=== PATIENT | female | born 1995 | race Caucasian/White ===

== ENCOUNTER 2020-09-25 14:06 | Outpatient (CLI) | payer BC, OTHER, SELFPAY | END 2020-09-25 14:07 | disposition home or self-care (01) | LOC: ANHCOVIDVC 14:06 | PROVIDERS: PCP Advanced Practice Midwife | DX: Z23 Encounter for immunization (principal) | CPT/HCPCS: 0001A; 91300 ==

== ENCOUNTER 2020-10-16 14:03 | Outpatient (CLI) | payer BC, OTHER, SELFPAY | END 2020-10-16 14:04 | disposition home or self-care (01) | LOC: ANHCOVIDVC 14:03 | PROVIDERS: PCP Advanced Practice Midwife | DX: Z23 Encounter for immunization (principal) | CPT/HCPCS: 0002A; 91300 ==

== ENCOUNTER 2020-11-22 22:49 | Emergency (ER) | payer BC, OTHER, SELFPAY ==
--- NOTE | ~2020-11-22 | CT_ITS ---
EXAMINATION: CT abdomen pelvis wo con DATE: 11/23/2020 00:09 INDICATION: Right flank pain and fever TECHNIQUE: Computed tomography (CT) of the abdomen and pelvis was performed without intravenous contr ast. Automated exposure control and iterative reconstruction technique were employed. The dose-length product was 361.52 mGy-cm. COMPARISON: 04/22/2018 FINDINGS: Lower lungs are clear. Heart size is normal. No pericardial or pleural effusion. Liver, gallbladder, pancreas, spleen and bilateral adrenal glands are normal. Kidneys and ureters are normal with no urol ithiasis, hydroureteronephrosis or perinephric/ureteral stranding. Bowels including the appendix are normal with no wall thickening or obstruction. IUD in expected position within the anteverted uterus. Bladder and bilateral adnexa are unremarkable. Small amount of likely physiologic free fluid in the pelvis. No free intraperitoneal gas. No pathologically enlarged abdominal or pelvic lymphadenopathy. Mild lumbar dextrocurvature. Bones are otherwise unremarkable. IMPRESSION: 1. No acute intra-abdominal/pelvic process. 2. IUD in expected position with small amount of likely physiologic free fluid in the pelvis. Reviewed, dictated and finalized at location A.
[2020-11-22 22:54] VITALS: BP 123/70; PULSE 131; RESP 20; TEMP 37.4; O2SAT 99
--- NOTE | 2020-11-22 23:32 | ED.GENADULT ---
HPI - General Adult General Chief complaint: Unspecified Stated complaint: flank pain Time Seen by Provider: 11/22/20 23:11 Source: patient Mode of arrival: ambulatory Limitations: no limitations History of Present Illness HPI narrative: This is a 24-year-old female that presents the emergency department for right flank pain since this morning. Reports it is intermittent and sharp in nature. Associated with fever, chills and nausea. Denies vomiting, dysuria, or hematuria. Related Data Home Medications Medication Instructions Recorded Confirmed Vitamin 1 tablet PO DAILY 05/18/19 05/18/19 valacyclovir 05/18/19 Allergies Allergy/AdvReac Type Severity Reaction Status Date / Time No Known Allergies Allergy Unknown Verified 05/05/19 12:44 Review of Systems Review of Systems: Narrative: CONSTITUTIONAL: Reports fever, chills GASTROINTESTINAL: Reports nausea. Denies abdominal pain, vomiting GENITOURINARY: Denies dysuria or hematuria. All systems reviewed & are unremarkable except as noted in HPI and below PMFSH Family History Family History Father Prostate carcinoma Social History Social History Smoking status: Never smoker Second hand tobacco smoke exposure: No Substance use: never Gender identity (if verbalized by the patient): Female Spiritual care concerns: No Exam Narrative: Exam Narrative: GENERAL: Well-appearing, well-nourished, and in no acute distress. HEAD: Normocephalic, atraumatic. EYES: EOMI. CHEST: Clear to auscultation. No respiratory distress. No wheezes rales or rhonchi HEART: Regular rate and rhythm. No murmur heard. Normal peripheral pulses. ABDOMEN: Soft, nontender, nondistended, normal active bowel sounds. Right-sided CVA tenderness EXTREMITIES: Normal range of motion. No edema. SKIN: Warm, dry, no rash. NEURO: No focal deficits. Alert and oriented x3. PSYCH: Normal mood and affect Course Vital Signs Vital signs: Vital Signs Temperature 99.4 F 11/22/20 22:54 Pulse Rate 131 H 11/22/20 22:54 Respiratory Rate 20 11/22/20 22:54 Blood Pressure 123/70 11/22/20 22:54 Pulse Oximetry 99 11/22/20 22:54 Temperature 99.4 F 11/22/20 22:54 Pulse Rate 131 H 11/22/20 22:54 Respiratory Rate 20 11/22/20 22:54 Blood Pressure 123/70 11/22/20 22:54 Pulse Oximetry 99 11/22/20 22:54 Medical Decision Making MDM Narrative Medical decision making narrative: Patient presents the emergency department for flank pain and subjective fevers. She is afebrile and nontoxic-appearing. Tachycardic upon arrival, this normalized with IV fluids. CBC is without leukocytosis. Metabolic panel without concerning findings. UA without evidence of infection. Bedside test is negative. CT scan of the abdomen and pelvis is without acute findings. Patient was updated on case findings. Reports improvement with IV fluids and Tylenol. She is to follow-up with primary care doctor. She is given warnings to return to the ER Vital Signs Vital Signs: Vital Signs Temperature 99.4 F 11/22/20 22:54 Pulse Rate 131 H 11/22/20 22:54 Respiratory Rate 20 11/22/20 22:54 Blood Pressure 123/70 11/22/20 22:54 Pulse Oximetry 99 11/22/20 22:54 Temperature 99.4 F 11/22/20 22:54 Pulse Rate 131 H 11/22/20 22:54 Respiratory Rate 20 11/22/20 22:54 Blood Pressure 123/70 11/22/20 22:54 Pulse Oximetry 99 11/22/20 22:54 Lab Data Lab results reviewed: Yes I reviewed the patient's lab results. Result diagrams: 11/22/20 23:28 11/22/20 23:28 Labs: Lab Results 11/22/20 11/22/20 11/22/20 Range/Units 23:23 23:28 23:28 WBC 8.0 (4.5-10.0) K/mm3 RBC 4.52 (4.2-5.4) M/mm3 Hgb 13.2 (12.0-15.0) g/dL Hct 39.8 (37.0-47.0) % MCV 88.1 (80-100) fl MCH 29.2 (26-34) pg MCHC 33.2 (32-36)
[2020-11-22 23:40] LABS: Basophils Percent Auto 0.5 % (0.2-1.2); Hematocrit 39.8 % (37.0-47.0); Hemoglobin 13.2 g/dL (12.0-15.0); Immature Granulocyte Absolute 0.03 K/mm3 (0.00-0.031); Immature Granulocyte Percent A 0.4 % (0-0.5); Lymphocytes Absolute Auto 0.79 K/mm3 (0.9-3.2); Lymphocytes Percent Auto 9.9 % (18.3-44.2); Mean Corpuscular HGB Conc 33.2 g/dl (32-36); Mean Corpuscular Hemoglobin 29.2 pg (26-34); Mean Corpuscular Volume 88.1 fl (80-100); Mean Platelet Volume 10.1 fl (7.4-10.4); Monocytes Absolute Auto 0.7 K/mm3 (0.1-0.6); Monocytes Percent Auto 8.9 % (2.6-8.5); Neutrophils Absolute Auto 6.4 K/mm3 (1.3-6.7); Neutrophils Percent Auto 80.3 % (45.5-73.1); Platelet Count Result 194 k/mm3 (150-375); Red Blood Count 4.52 M/mm3 (4.2-5.4); Red Cell Distribution Width 12.1 % (11.5-14.5)
[2020-11-22 23:47] LABS: Anion Gap 10 mmol/L (8-16); Blood Urea Nitrogen 14 mg/dL (7-17); Carbon Dioxide 27 mmol/L (22-30); Chloride 99 mmol/L (98-107); Estimated CRCL calculation 89 ml/min; Estimated Glomerular Filt Rate > 60; Glucose 99 mg/dL (65-105); Potassium 3.9 mmol/L (3.4-5.0); Sodium 136 mmol/L (137-145)
[2020-11-22 23:47] LABS: Add Urine Microscopic? YES; Appearance Urine Clear (Clear); Bacteria Urine Trace /hpf; Bilirubin Urine Negative (Negative); Blood Urine Negative (Negative); Color Urine Straw (Yellow); Glucose Urine UA Negative (Negative); Ketones Urine 1+ mg/dL (Negative); Leukocyte Esterase Ur Negative LEU/UL (Negative); Mucus Urine Rare /lpf; Nitrate Urine Negative (Negative); Protein Urine Negative (Negative); RBC Urine 0-2 /hpf (0-2); Specific Grav Ur 1.005 (1.001-1.035); Squamous Epithelial Cell Urine Occasional /hpf (Few); Urobilinogen Urine Negative mg/dL (<2.0); WBC Urine 0-3 /hpf
[2020-11-22] MEDS: SODIUM CHLORIDE 0.9% IV 1,000 ML 999 ML IV CONT (23:56)
[2020-11-23 01:14] LABS: Lactic Acid Reflex 0.5 mmol/L (0.7-2.1)
[2020-11-23 01:25] VITALS: BP 119/67; PULSE 79; RESP 18; O2SAT 98
== END 2020-11-23 01:32 | disposition home or self-care (01) ==
PROVIDERS: Physician Assistant; Emergency Provider Emergency Medicine; PCP Family Medicine Adolescent Medicine
DX: R10.9 Unspecified abdominal pain (principal); Z97.5 Presence of (intrauterine) contraceptive device
CPT/HCPCS: 36415; 74176; 80048; 81001; 81025; 83605; 85025; 96365; 99284; J0131; J7030

== ENCOUNTER 2022-01-21 00:08 | Day surgery (SDC) | payer BC, OTHER, SELFPAY ==
[2022-01-16 09:44] VITALS: BMI 23.8
--- NOTE | 2022-01-16 10:00 | PC.NURSE ---
Report to the Outpatient Waiting Room, entrance under the green pavilion located off [facility], at time 0630 on date 01/21/22. OR Time: 0830. - You and your visitor will be asked a series of questions to screen for COVID 19 for your protection. - Only one visitor is allowed at this time. - The patient visitor is requested to leave or wait in car when not with patient. - A mask is required within the hospital. Patients may have clear liquids (water, carbonated beverages, clear teas, apple juice) until 3 hours prior to surgery with a maximum of 20 ounces. - No food from midnight until time of surgery Take the following medications with a SIP of water the morning of surgery: N/A Medications to discontinue per physician: N/A Date to take last dose: N/A Please no make-up, nail slovak, hairspray, perfume, deodorant, or body powder the day of surgery. No jewelry (including any body piercings) or valuables the day of surgery, leave them at home. Please take a shower or bath the night before, or the morning of, surgery with an antibacterial soap. Wear comfortable, loose fitting clothing. - Jewelry must be removed prior to entering the operating room. Rings and piercings that are not removed may be cut off. - The hospital will not accept responsibility for valuables. - Please leave all valuables, including medications, at home the day of surgery. If you are going home after surgery, a licensed local company refrigerated truck driver must drive you home. - NO public transportation without another adult. - We recommend that an adult stay with you for 24 hours following discharge. - We also recommend that you do not drive, make important decision, drink alcoholic beverages, or take any drugs that were not prescribed by your health care provider for at least 24 hours after your discharge time. Follow any additional instructions given to you from your surgeon. If you or anyone in your household have experienced Covid symptoms in the past week, please notify your surgeon or the nurse liaison at the phone number below for possible testing. Telephone instructions given to PT - PANKAJ TERAN and asked if any additional questions and then verbalized understanding. Patient advised to call surgeon office or pre surgery nurse liaison [phone] if any additional questions.
--- NOTE | 2022-01-20 12:55 | P.PNAN_ITS ---
Anes - Initial Pre Proc Eval Procedure: Operation Date: 01/21/22 08:30 Proposed Procedures p Bilateral Laparoscopic Salpingectomy - Alexis Mera MD Date/Time: 01/20/22 12:55 Surgeon: Alexis Mera MD Pre Op Diagnosis: desires sterilization Patient Data Age: 26 Gender: F Height: 1.57 m Weight: 59 kg Allergies Allergy/AdvReac Type Severity Reaction Status Date / Time No Known Allergies Allergy Unknown Verified 01/16/22 09:43 Home Medications Medication Instructions Recorded Confirmed Type No Home Medications 01/16/22 01/16/22 History Patient hx anesthesia problems: none Family hx anesthesia problems: none Results Review: All pre-operative results and documents have been reviewed as part of the pre- operative evaluation. [facility] Past Medical History Medical History (Updated 01/20/22 @ 12:56 by Colby Herbert MD) Engages in vaping Family History Family History Father Prostate carcinoma Social History Social History Smoking status: Never smoker Tobacco type: e-cigarettes/vaping Second hand tobacco smoke exposure: No Additional smoking assessment comments: CURRENTLY VAPES Alcohol intake: current Alcohol use details: 2-3/MONTH Substance use: never Substance use type: does not use Living arrangements: with family Gender identity (if verbalized by the patient): Female Spiritual care concerns: No Anes - Eval Final PreProcedure Day of Procedure 01/20/22 12:55 Patient weight: normal Heart: regular rate and rhythm Lungs: clear to auscultation and normal air movement Airway: Mallampati scale class II Neurological: alert and oriented Last oral intake: >/= 8 hours ASA classification: II Emergent: no Anesthetic plan: proceed Anesthesia type and monitoring: general ETT Results Review: All pre-operative results and documents have been reviewed as part of the pre- operative evaluation. Informed Consent: The patient's anesthetic plan and its attendant risks and benefits were discussed with the patient/family/POA. Questions were solicited and answers provided to the satisfaction of the patient/family/POA.
--- NOTE | 2022-01-20 13:44 | P.PNAN_ITS ---
Anes - Initial Pre Proc Eval Procedure: Operation Date: 01/21/22 08:30 Proposed Procedures p Bilateral Laparoscopic Salpingectomy - Alexis Mera MD Date/Time: 01/20/22 13:44 Surgeon: Alexis Mera MD Pre Op Diagnosis: desires sterilization Patient Data Age: 26 Gender: F Height: 1.57 m Weight: 59 kg Allergies Allergy/AdvReac Type Severity Reaction Status Date / Time No Known Allergies Allergy Unknown Verified 01/16/22 09:43 Home Medications Medication Instructions Recorded Confirmed Type No Home Medications 01/16/22 01/16/22 History Results Review: All pre-operative results and documents have been reviewed as part of the pre- operative evaluation. [facility] Past Medical History Medical History (Updated 01/20/22 @ 12:56 by Colby Herbert MD) Engages in vaping Family History Family History Father Prostate carcinoma Social History Social History Smoking status: Never smoker Tobacco type: e-cigarettes/vaping Second hand tobacco smoke exposure: No Additional smoking assessment comments: CURRENTLY VAPES Alcohol intake: current Alcohol use details: 2-3/MONTH Substance use: never Substance use type: does not use Living arrangements: with family Gender identity (if verbalized by the patient): Female Spiritual care concerns: No Anes - Eval Final PreProcedure Day of Procedure 01/20/22 13:44 Results Review: All pre-operative results and documents have been reviewed as part of the pre- operative evaluation. Informed Consent: The patient's anesthetic plan and its attendant risks and benefits were discussed with the patient/family/POA. Questions were solicited and answers provided to the satisfaction of the patient/family/POA.
[2022-01-21] VITALS (8 sets, daily range): BP systolic 100–117; BP diastolic 67–75; PULSE 61–74; RESP 12–20; TEMP 36.4–36.5; O2SAT 99–100
[2022-01-21] MEDS: LACTATED RINGERS 1,000 ML 30 ML IV CONT (07:08)
[2022-01-21] MEDS: ACETAMINOPHEN 500 MG TABLET 1000 MG PO (07:08)
[2022-01-21] MEDS: KETOROLAC 15 MG/ML VIAL (*BKC) IV PUSH (07:08)
--- NOTE | 2022-01-21 08:39 | PM.IMHP ---
H&P: [facility] History of Present Illness Date/Time: 01/21/22 08:39 Chief Complaint: Female sterilization Narrative: This patient is a 26-year-old female who desires female sterilization. We have agreed perform laparoscopic bilateral salpingectomy. She understands there is risk. She understands that injuries may occur during the surgery. She understands injuries can result in hospitalization, more surgery, and severe illness. She understands risk of hemorrhage infection. She denies any nausea, vomiting, fever, chills. She denies any chest pain or shortness of breath. Review of Systems Review of Systems: All systems reviewed & are unremarkable except as noted in HPI and below Constitutional: Constitutional: Denies chills, Denies fatigue, Denies fever(s) and Denies weakness Eyes: Eyes: Denies blurry vision, Denies change in vision, Denies loss of peripheral vision, Denies loss of vision, Denies other visual disturbances and Denies eye pain ENT: Denies vertigo, Denies dizziness, Denies hearing loss, Denies mouth pain, Denies nasal obstruction, Denies neck mass and Denies neck pain Cardiovascular: Cardiovascular: Denies chest pain, Denies diaphoresis, Denies syncope, Denies leg edema and Denies dyspnea Respiratory: Respiratory: Denies chest congestion, Denies cough, Denies hemoptysis, Denies dyspnea and Denies wheezing Gastrointestinal: Gastrointestinal: Denies abdominal pain, Denies constipation, Denies diarrhea, Denies nausea and Denies vomiting Genitourinary: Genitourinary: Denies hematuria, Denies change in libido, Denies nocturia, Denies genital lesions, Denies flank pain and Denies urinary urgency Musculoskeletal: Musculoskeletal: Denies abnormal gait, Denies back pain, Denies myalgias, Denies arthralgias, Denies joint swelling, Denies muscle weakness and Denies neck pain Integumentary/Breasts: Skin/Breast: Denies swelling, Denies breast pain, Denies breast mass, Denies dry skin, Denies nipple discharge, Denies unusual bruising and Denies jaundice Neurologic: Denies Neuro-related abnormal movements, Denies Abnormal speech present, Denies abnormal gait, Denies behavioral changes, Denies confusion, Denies vertigo, Denies dizziness, Denies syncope, Denies loss of vision, Denies memory loss, Denies convulsions and Denies weakness Psychiatric: Psychiatric: Denies abnormal sleep pattern, Denies behavioral changes, Denies change in libido, Denies confusion, Denies depression, Denies anhedonia and Denies memory loss Endocrine: Endocrine: Reports no additional endocrine complaints, Denies change in libido and Denies fatigue Hematologic/Lymphatic: Hematologic/Lymphatic: Reports no additional hematologic/lymphatic complaints Allergic/Immunologic: Allergic/Immunologic: Reports no additional allergic/immunologic complaints and Denies wheezing PMFSH Past Medical History Medical History (Updated 01/21/22 @ 08:41 by Alexis Mera MD) Engages in vaping Family History Family History Father Prostate carcinoma Social History Social History Smoking status: Never smoker Tobacco type: e-cigarettes/vaping Second hand tobacco smoke exposure: No Additional smoking assessment comments: CURRENTLY VAPES Alcohol intake: current Alcohol use details: 2-3/MONTH Substance use: never Substance use type: does not use Living arrangements: with family Gender identity (if verbalized by the patient): Female Spiritual care concerns: No Meds Home Medications and Allergies Home Medications Medication Instructions Recorded Confirmed Type No Home Medications 01/16/22 01/16/22 History Allergies Allergy/AdvReac Type Severity Reaction Status Date / Time No Known Allergies Allergy Unknown Verified 01/21/22 07:43 Vital Signs Vital Signs - 24 hr 01/21/22 07:00 Temperature 97.5 F L Pulse Rate 74 Respiratory Ra
--- NOTE | 2022-01-21 08:42 | WPDHPUPDATE1 ---
History and Physical Update Update Date/Time: 01/21/22 08:42 History and Physical has been reviewed, including an updated exam of the patient. There are NO changes in the patient's condition. Risks, benefits, and alternatives have been discussed and questions answered. Patient agrees to proceed with procedure.
[2022-01-21] MEDS: fentaNYL CITRATE INJ (*CRX) 100 MCG/2 ML VIAL 25 MCG IV PUSH ×4 (09:39→09:56)
--- NOTE | 2022-01-21 10:22 | W.PM.PROC2 ---
Procedure Note - Detailed Date of Procedure 01/21/22 Pre-op Diagnosis desires sterilization Post-op Diagnosis Same Procedure Performed Laparoscopic bilateral salpingectomy Surgeon Alexis Mera MD Anesthesia General Indications Unwanted fertility Findings Normal pelvic anatomy Description of Procedure The patient was taken the operating room. She was prepped and draped in the dorsal lithotomy position after induction of general anesthesia. A 5 mm skin incision was made in the left upper quadrant of the abdominal skin. A 5 mm trocar was inserted the intra-abdominal cavity under direct visualization of the scope. Pneumoperitoneum was achieved. A 5 mm trocar was inserted in the left lower quadrant identical fashion. A 5 mm infraumbilical trocar was inserted in identical fashion as well. The bilateral fallopian tubes were removed. This was done by using a LigaSure cautery. The mesosalpinx adjacent to the tube was cauterized transected with LigaSure. This was initiated in the area the ovary and in a stepwise fashion moved medially to the area of the cornu of the uterus. Once there the fallopian tube was cauterized and transected. This was done in identical fashion on each side. The fallopian tubes were taken out through the left lower quadrant trocar site. The pneumoperitoneum was reduced. The trocars removed. The skin was closed with subcuticular 4 Monocryl and covered with Dermabond. She was taken to cover stable condition. Sponge lap and needle counts were correct x2. Estimated Blood Loss 5 Drains No Packing No Pathology Yes Complications No immediate complications Condition Stable Disposition PACU
[2022-01-21] MEDS: oxyCODONE HCL (*CRX) 5 MG TAB IR PO (10:36)
== END 2022-01-21 11:26 | disposition home or self-care (01) ==
PROVIDERS: PCP Family Medicine Adolescent Medicine; Visit Provider Obstetrics & Gynecology
PROC: (CPT 49320; principal; 2022-01-21 08:30)
DX: Z30.2 Encounter for sterilization (principal); N83.8 Other noninflammatory disorders of ovary, fallopian tube and broad ligament; F17.290 Nicotine dependence, other tobacco product, uncomplicated
CPT/HCPCS: 58661; 88302; A9270; J0330; J1100; J1885; J2250; J2405; J2704; J3010; J7030; J7120

== ENCOUNTER 2023-06-28 16:40 | Emergency (ER) | payer OTHER, SELFPAY ==
--- NOTE | 2023-06-28 16:48 | ED.SKABFB ---
HPI - Skin/Abscess/Foreign Bdy General Chief complaint: Skin/Abscess/Foreign Body Stated complaint: insect bit under right arm Time Seen by Provider: 06/28/23 17:00 Source: patient and RN notes reviewed Mode of arrival: ambulatory Limitations: no limitations History of Present Illness HPI narrative: 27-year-old female presents with concern for an insect bite under her right arm. Reports he noticed a by yesterday, she felt something bite her. She reports that is itchy and tender. She denies drainage from the area. She reports pain in tenderness is greater than the area of the actual redness. She denies swollen lips, swollen tongue, fever. MD complaint: insect bite/sting Related Data Allergies Allergy/AdvReac Type Severity Reaction Status Date / Time duloxetine [From Cymbalta] AdvReac Unknown Nausea Verified 06/28/23 16:49 sertraline AdvReac Unknown Nausea Verified 06/28/23 16:49 Review of Systems Review of Systems: CONSTITUTIONAL: Denies malaise, chills, sweats, or fever. EYES: Denies redness, or discharge. ENT: Denies rhinorrhea, congestion, swollen lips, swollen tongue CARDIOVASCULAR: Denies chest pain, palpitations, or edema. RESPIRATORY: Denies cough or dyspnea. GASTROINTESTINAL: Denies abdominal pain, nausea, vomiting SKIN: Reports tender in itchy insect bite on her right arm MUSCULOSKELETAL: Denies joint pain or myalgia. NEUROLOGIC: Denies headache. All systems reviewed & are unremarkable except as noted in HPI and below PMFSH Past Medical History Medical History Engages in vaping Surgical History Surgical History H/O tubal ligation (01/21/22) Family History Family History Father Prostate carcinoma Diabetes mellitus Grandparent Diabetes mellitus Heart disease Mother Hypertension Migraine Social History Social History Smoking status: Current every day smoker Tobacco type: e-cigarettes/vaping Second hand tobacco smoke exposure: No Additional smoking assessment comments: CURRENTLY VAPES Alcohol intake: current Alcohol use details: 2-3/MONTH Substance use: never Substance use type: does not use Living arrangements: with family Occupation/Education: occupation 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 There is no relevant family history pertinent to the presenting complaint Exam Narrative: GENERAL: Well-appearing, well-nourished, and in no acute distress. HEAD: Normocephalic, atraumatic. EYES: PERRLA, conjunctivae clear, and EOMI. ENT: Mucous membranes moist. Oropharynx without edema, erythema or lesions. NECK: Supple. No lymphadenopathy CHEST: Clear to auscultation. No respiratory distress. HEART: Regular rate and rhythm. SKIN: Warm, dry. 2 cm in diameter slightly raised erythematous area, nonfluctuant, tender noted in the right axilla with slight erythema surrounding and tenderness, no drainage noted NEURO: Alert and oriented x3. PSYCH: Normal mood and affect Course Course Emergency Course: Patient is aware of diagnosis, understands and agrees to treatment plan. Anticipatory guidance given. Patient agrees to follow-up as directed and is aware of reasons to seek care at the emergency department. Portions of this record may have been created with voice recognition software Level of Care: Express Care Visit Vital Signs Vital signs: Reviewed. MDM - Skin/Abscess/Foreign Bdy MDM Narrative Medical decision making narrative: Does not appear at this time to be erythema multiforme, bullous, SJS, TEN; no evidence at this time to suggest R
[2023-06-28 16:51] VITALS: BP 127/63; PULSE 84; RESP 16; TEMP 36.9; O2SAT 99
== END 2023-06-28 17:11 | disposition home or self-care (01) ==
PROVIDERS: Emergency Provider Nurse Practitioner; PCP Family Medicine Adolescent Medicine
DX: S40.861A Insect bite (nonvenomous) of right upper arm, initial encounter (principal); W57.XXXA Bitten or stung by nonvenomous insect and other nonvenomous arthropods, initial encounter; F17.290 Nicotine dependence, other tobacco product, uncomplicated
CPT/HCPCS: 99213; G0463

== ENCOUNTER 2023-07-04 08:48 | Emergency (ER) | payer OTHER, SELFPAY ==
[2023-07-04 08:58] VITALS: BP 105/65; PULSE 82; RESP 16; TEMP 36.9; O2SAT 100
--- NOTE | 2023-07-04 09:02 | ED.GENADULT ---
HPI - General Adult General Chief complaint: Skin/Abscess/Foreign Body Stated complaint: Allergic Reaction Time Seen by Provider: 07/04/23 09:10 Source: patient, RN notes reviewed and old records reviewed Mode of arrival: ambulatory Limitations: no limitations History of Present Illness HPI narrative: 27-year-old female presents to the [facility] with complaints of itching. Was seen on the and prescribed Bactrim. Followed up with her primary on the was told use eczema cream and [id number]-jtd-oldrbwi products. Patient states that she stop taking her Bactrim yesterday. Has been using topical creams. No other treatment prior to No lip or tongue swelling. No difficulty breathing. Denies chest pain or shortness of breath. Onset (ago): day(s) (3-4) Related Data Allergies Allergy/AdvReac Type Severity Reaction Status Date / Time sulfamethoxazole Allergy Rash Verified 07/04/23 09:11 [From Bactrim] trimethoprim [From Bactrim] Allergy Rash Verified 07/04/23 09:11 duloxetine [From Cymbalta] AdvReac Unknown Nausea Verified 07/04/23 09:11 sertraline AdvReac Unknown Nausea Verified 07/04/23 09:11 Review of Systems Review of Systems: All systems reviewed & are unremarkable except as noted in HPI and below Constitutional: Constitutional: Reports no additional constitutional complaints Eyes: Eyes: Reports no additional eye complaints ENT: Reports system reviewed and no additional complaints, except as documented Cardiovascular: Cardiovascular: Reports no additional cardiovascular complaints, Denies chest pain and Denies dyspnea Respiratory: Respiratory: Reports no additional respiratory complaints, Denies chest congestion, Denies cough and Denies dyspnea Gastrointestinal: Gastrointestinal: Reports no additional gastrointestinal complaints, Denies abdominal pain, Denies nausea and Denies vomiting Musculoskeletal: Musculoskeletal: Reports no additional musculoskeletal complaints Integumentary/Breasts: Skin/Breast: Reports as per HPI and Reports rash Neurologic: Reports system reviewed and no additional complaints, except as documented Psychiatric: Psychiatric: Reports no additional psychiatric complaints Allergic/Immunologic: Allergic/Immunologic: Reports no additional allergic/immunologic complaints PMFSH Past Medical History Medical History Engages in vaping Surgical History Surgical History H/O tubal ligation (01/21/22) Family History Family History Father Prostate carcinoma Diabetes mellitus Grandparent Diabetes mellitus Heart disease Mother Hypertension Migraine Social History Social History Smoking status: Current every day smoker Tobacco type: e-cigarettes/vaping Second hand tobacco smoke exposure: No Additional smoking assessment comments: CURRENTLY VAPES Alcohol intake: current Alcohol use details: 2-3/MONTH Substance use: never Substance use type: does not use Living arrangements: with family Occupation/Education: occupation Additional occupation/education comments: [employer] Gender identity (if verbalized by the patient): Female Spiritual care concerns: No Comments At the time of my signature, I reviewed and agree with the nursing past medical, surgical, social, and family history. There is no relevant family history pertinent to the patient complaint. Exam Const: General: cooperative, healthy appearing, comfortable, no acute distress, well developed, alert and well nourished Nutritional Appearance: well nourished Orientation/consciousness: patient oriented x3 Limitations: no limitations HENMT: Head: normal to inspection Ears: hearing grossly normal bilaterally, external ears normal, TM's normal bilaterally, EAC's normal, mastoids normal and no
== END 2023-07-04 09:24 | disposition home or self-care (01) ==
PROVIDERS: Emergency Provider Nurse Practitioner; PCP Family Medicine Adolescent Medicine
DX: L50.0 Allergic urticaria (principal); F17.290 Nicotine dependence, other tobacco product, uncomplicated
CPT/HCPCS: 99213; G0463

== ENCOUNTER 2023-07-27 23:37 | Emergency (ER) | payer OTHER, SELFPAY ==
--- NOTE | ~2023-07-27 | US_ITS ---
Pelvic ultrasound. Clinical History: Pelvic pain Technique: Realtime transabdominal and transvaginal scanning of the pelvis was performed. Color flow Doppler and Doppler spectral analysis were performed. Findings: The uterus is anteverted. The endometrial stripe has a thickness of 4 mm. No focal mass is identified. The right ovary measures 3.1 x 2.7 x 2.7 cm. No significant right ovarian or adnexal mass is seen. The left ovary measures 4.7 x 2.9 x 3.0 cm. Complex left ovarian cyst measures 2.7 cm in diameter, li morgan hemorrhagic cyst. There is a small amount of free fluid in the cul de sac. Impression: 2.7 cm complex left ovarian cyst, most likely hemorrhagic cyst. Small amount of free fluid, nonspecific. Reviewed, dictated and finalized at [facility]. OR GENETIC COUNSELOR Impression: 2.7 cm complex left ovarian cyst, most likely hemorrhagic cyst. Small amount of free fluid, nonspecific.
[2023-07-27 23:45] VITALS: BP 118/79; PULSE 88; RESP 16; TEMP 36.6; O2SAT 100
[2023-07-27 23:57] LABS: Basophils Absolute Auto 0.1 K/mm3 (0.0-0.1); Basophils Percent Auto 0.6 % (0.2-1.2); Eosinophils Absolute Auto 0.2 K/mm3 (0-0.3); Eosinophils Percent Auto 2.4 % (0-4.4); Hematocrit 38.7 % (37.0-47.0); Hemoglobin 12.6 g/dL (12.0-15.0); Immature Granulocyte Absolute 0.02 K/mm3 (0.00-0.031); Immature Granulocyte Percent A 0.2 % (0-0.5); Lymphocytes Absolute Auto 2.72 K/mm3 (0.9-3.2); Lymphocytes Percent Auto 27.6 % (18.3-44.2); Mean Corpuscular HGB Conc 32.6 g/dl (32-36); Mean Corpuscular Hemoglobin 29.4 pg (26-34); Mean Corpuscular Volume 90.4 fl (80-100); Mean Platelet Volume 10.8 fl (7.4-10.4); Monocytes Absolute Auto 0.7 K/mm3 (0.1-0.6); Monocytes Percent Auto 7.3 % (2.6-8.5); Neutrophils Absolute Auto 6.1 K/mm3 (1.3-6.7); Neutrophils Percent Auto 61.9 % (45.5-73.1); Platelet Count Result 207 k/mm3 (150-375); Red Blood Count 4.28 M/mm3 (4.2-5.4); Red Cell Distribution Width 12.2 % (11.5-14.5); White Blood Count 9.9 K/mm3 (4.5-10.0)
[2023-07-27 23:59] LABS: Appearance Urine Clear (Clear); Bilirubin Urine Negative (Negative); Blood Urine Negative (Negative); Color Urine Yellow (Yellow); Glucose Urine UA Negative (Negative); Ketones Urine Negative (Negative); Leukocyte Esterase Ur Negative LEU/UL (Negative); Nitrate Urine Negative (Negative); Protein Urine Negative (Negative); Urobilinogen Urine 0.2 mg/dL (<2.0)
[2023-07-28 00:01] LABS: Add Urine Microscopic? NO
[2023-07-28 00:06] LABS: Alanine Aminotransferase 14 U/L (6-35); Albumin Level 4.7 g/dL (3.5-5.1); Alkaline Phosphatase 50 U/L (38-126); Anion Gap 10 mmol/L (8-16); Aspartate Amino Transferase 20 U/L (14-36); Bilirubin,Total 0.6 mg/dL (0.2-1.3); Blood Urea Nitrogen 13 mg/dL (7-17); Calcium 9.5 mg/dL (8.4-10.2); Carbon Dioxide 26 mmol/L (22-30); Chloride 102 mmol/L (98-107); Estimated CRCL calculation 83 ml/min; Estimated Glomerular Filt Rate > 60; Glucose 97 mg/dL (65-110); Lipase 94 U/L (23-300); Potassium 3.5 mmol/L (3.4-5.0); Sodium 138 mmol/L (137-145)
[2023-07-28 00:27] VITALS: BP 124/81; PULSE 83; RESP 16; TEMP 36.8; O2SAT 99
[2023-07-28 01:48] VITALS: BP 107/77; PULSE 79; RESP 15; O2SAT 99
--- NOTE | 2023-07-28 01:51 | ED.ABDPAIN ---
HPI - Abdominal Pain General Chief Complaint: Abdominal Pain <HEATHER Laguna Last Filed: 07/28/23 03:19> Stated Complaint: lower abd pain, hx ovarian cysts <HEATHER Laguna Last Filed: 07/28/23 03:19> Time Seen by Provider: 07/28/23 00:29 <HEATHER Laguna Last Filed: 07/28/23 03:19> Source: patient <HEATHER Laguna Last Filed: 07/28/23 03:19> Mode of arrival: ambulatory <HEATHER Laguna Last Filed: 07/28/23 03:19> Limitations: no limitations <HEATHER Laguna Last Filed: 07/28/23 03:19> History of Present Illness HPI narrative: Patient is a 27 y/o female who presents to the ED with c/o lower abd pain. Patient reports pain began suddenly a few hours prior to arrival. States pain was severe at first. Worse with any type of movement. Slightly more prominent in LLQ/L pelvic region. Patient was nauseous with the pain. Denied vomiting. States she has had similar pain in the past r/t ovarian cysts/ovarian cyst rupture. Patient states pain is slightly improved currently. She has not taken anything for the pain. Denies fevers, diarrhea, constipation, vaginal bleeding, dysuria, hematuria. <HEATHER Laguna Last Filed: 07/28/23 03:19> Related Data Allergies/Adverse Reactions: Allergies Allergy/AdvReac Type Severity Reaction Status Date / Time sulfamethoxazole Allergy Rash Verified 07/04/23 09:11 [From Bactrim] trimethoprim [From Bactrim] Allergy Rash Verified 07/04/23 09:11 duloxetine [From Cymbalta] AdvReac Unknown Nausea Verified 07/04/23 09:11 sertraline AdvReac Unknown Nausea Verified 07/04/23 09:11 <HEATHER Laguna Last Filed: 07/28/23 03:19> Review of Systems Review of Systems: CONSTITUTIONAL: Denies fever, chills, or sweats. GASTROINTESTINAL: See HPI. GENITOURINARY: Denies vaginal bleeding, dysuria or hematuria. <Katie Castro PA-C - Last Filed: 07/28/23 03:19> All systems reviewed & are unremarkable except as noted in HPI and below <Katie Castro PA-C - Last Filed: 07/28/23 03:19> PMFSH Past Medical History Medical History: Medical History Engages in vaping <Katie Castro PA-C - Last Filed: 07/28/23 03:19> Surgical History Surgical History: Surgical History H/O tubal ligation (01/21/22) <Katie Castro PA-C - Last Filed: 07/28/23 03:19> Family History Family History: Family History Father Prostate carcinoma Diabetes mellitus Grandparent Diabetes mellitus Heart disease Mother Hypertension Migraine <Katie Castro PA-C - Last Filed: 07/28/23 03:19> Social History Social History: Social History Smoking status: Current every day smoker Tobacco type: e-cigarettes/vaping Second hand tobacco smoke exposure: No Additional smoking assessment comments: CURRENTLY VAPES Alcohol intake: current Alcohol use details: 2-3/MONTH Substance use: never Substance use type: does not use Living arrangements: with family 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 HEAD: Normocephalic, atraumatic. RESPIRATORY: Airway patent, respirations nonlabored. CARDIOVASCULAR: Regular rate and rhythm. ABDOMINAL: Soft, mild tenderness throughout lower abdomen, left lower pelvic region, no rebound, nondistended. Normoactive BS. MUSCULOSKELETAL: Moves all extremities. No gross deformities.
[2023-07-28] MEDS: ONDANSETRON INJ 4 MG/2 ML VIAL IV PUSH (02:10)
[2023-07-28] MEDS: MORPHINE SULFATE (*CRX) 4 MG/ML INJ IV PUSH ×2 (02:11→03:20)
[2023-07-28 02:14] VITALS: BP 109/74; PULSE 73; RESP 16; O2SAT 99
[2023-07-28 04:36] VITALS: BP 119/87; PULSE 77; RESP 16; O2SAT 100
[2023-07-28 05:24] VITALS: BP 141/82; PULSE 78; RESP 15; TEMP 36.7; O2SAT 100
== END 2023-07-28 05:25 | disposition home or self-care (01) ==
PROVIDERS: Emergency Medicine; Emergency Provider Physician Assistant; PCP Family Medicine Adolescent Medicine
DX: N83.202 Unspecified ovarian cyst, left side (principal); F17.290 Nicotine dependence, other tobacco product, uncomplicated
CPT/HCPCS: 36415; 76830; 76856; 80053; 81003; 81025; 83690; 85025; 96374; 96375; 96376; 99284; J2270; J2405

== ENCOUNTER 2024-09-30 19:41 | Emergency (ER) | payer OTHER, SELFPAY ==
--- NOTE | 2024-09-30 19:47 | ED.URI ---
HPI - URI/Sore Throat General Chief Complaint: Upper Respiratory Infection Stated Complaint: cold,tired,throat hurts,diarrhea Time Seen by Provider: 09/30/24 19:47 Source: patient Mode of arrival: ambulatory Limitations: no limitations History of Present Illness HPI Narrative: Dayna is a 28-year-old female patient presenting to the clinic today with complaints of sore throat, diarrhea, fatigue, chills, headache, and nasal congestion x1 day. She reports her symptoms started yesterday. Recently started Lexapro on Thursday and is concerned that she may be having side effects from the medication. Contacted her primary care doctor and they encouraged her to be evaluated but felt as though it was likely viral. Denies any known fever. Related Data Allergies Allergy/AdvReac Type Severity Reaction Status Date / Time sulfamethoxazole (From Allergy Rash Verified 09/30/24 19:47 Bactrim) trimethoprim (From Bactrim) Allergy Rash Verified 09/30/24 19:47 duloxetine (From Cymbalta) AdvReac Unknown Nausea Verified 09/30/24 19:47 sertraline AdvReac Unknown Nausea Verified 09/30/24 19:47 Review of Systems Review of Systems: Pertinent positives per HPI. Patient denies any fever, rash, visual changes, dizziness, cough, shortness of breath, chest pain, palpitations, nausea, vomiting, constipation, abdominal pain, or any urinary issues. [facility] Past Medical History Medical History Cellulitis of right axilla Engages in vaping Surgical History Surgical History H/O tubal ligation (01/21/22) Family History Family History Father Prostate carcinoma Diabetes mellitus Grandparent Diabetes mellitus Heart disease Mother Hypertension Migraine Social History Social History Smoking status: Current every day smoker Tobacco type: e-cigarettes/vaping Second hand tobacco smoke exposure: No Additional smoking assessment comments: CURRENTLY VAPES Alcohol intake: current Alcohol use details: 2-3/MONTH Substance use: never Substance use type: does not use Living arrangements: with family Occupation/Education: occupation Additional occupation/education comments: [email or web address] Gender identity (if verbalized by the patient): Female Spiritual care concerns: No Comments At the time of my signature, I reviewed and agree with the nursing past medical, surgical, social, and family history. There is no relevant family history pertinent to the patient complaint. Exam Narrative: General: Well-developed, well nourished, in no apparent distress Head: Normocephalic, atraumatic Eyes: Pupils equally round and reactive to light bilaterally, EOM intact, sclera and conjunctive clear, no discharge, lids normal Ears: TMs intact and clear, ear canals clear, no drainage, grossly hearing normal. Nose: Nares patent, clear discharge, no inflammation, no sinus tenderness. Mouth: Oral pharynx red without lesions or masses, good dentition, MMM. Neck: Supple, trachea midline, no enlargement of anterior or posterior cervical nodes, no thyroid masses or goiter palpable. Cardio: Regular rate and rhythm, s1 and s2 normal, no murmur appreciated. Resp: Clear to auscultation bilaterally, no rhonchi, rales, wheezing or rubs Course Course Emergency Course: Portions of this record may have been created with voice recognition software. Level of Care: Express Care Visit Vital Signs Vital signs: Vital Signs Temperature 36.4 C 09/30/24 19:48 Pulse Rate 87 09/30/24 19:48 Respiratory Rate 16 09/30/24 19:48 Blood Pressure 122/74 09/30/24 19:48 Pulse Oximetry 100 09/30/24 19:48 Oxygen Delivery Room Air 09/30/24 19:48 Temperature 36.4 C 09/30/24 19:48 Pulse Rate 87 09/30/24 19:48 Respiratory Rate 16 09/30/24 19:48 Blood Pressure 122/74 09/30/24 19:48 Pulse Oximetry 100 09/30/24 19:48 Oxygen Delivery Room Air 09/30/24 19:48 Vital signs reviewed MDM - URI/Sore Throat MDM Narrative Medical decision making narrative: At the time of visit patient is resting comfortably on the exam table. Patient appears to be nontoxic. Labs: COVID, influenza, and strep test were all negative in the clinic today. Plan: I suspect patient has a viral syndrome/URI/pharyngitis. Other etiology may be side effects from Lexapro. She denies any fever or joint pain. Supportive measures were discussed with the patient and they voiced understanding discharge instructions and agrees to treatment plan. Return precautions reviewed Differential Diagnosis Differential diagnosis: Likely upper respiratory infection, otitis media, sinusitis, viral infection, bronchitis, influenza, pharyngitis and other (COVID) Lab Data Labs: Lab Results 09/30/24 09/30/24 Range/Units 20:12 20:13 POC Influenza A Ag Negative (Negative) POC Influenza B Ag Negative (Negative) POC SARS CoV-2 Ag Negative (Negative) POC Grp A Strep Screen Negative (Negative) Discharge Plan Discharge Clinical Impression: Acute viral syndrome URI (upper respiratory infection) Qualifiers: URI type: unspecified URI Qualified Code(s): J06.9 - Acute upper respiratory infection, unspecified Pharyngitis Qualifiers: Pharyngitis/tonsillitis etiology: unspecified etiology Qualified Code(s): J02.9 - Acute pharyngitis, unspecified Patient Disposition: Home, Self-Care Condition: Stable Instructions: Antibiotic Form, Pharyngitis (ED), Viral Syndrome (ED), Cold Symptoms (ED) Additional Instructions: COVID, influenza, and strep test were all negative in the clinic today. We will send strep for culture if this comes back positive we will contact you in place you on antibiotics at that time. Increase fluids and stay well hydrated Tylenol/motrin for pain/fever Flonase and OTC antihistamines as directed Vicks vapor rub to open sinuses Sinus rinses for congestion Cepacol spray, cough drops, throat lozenges, warm tea with honey/lemon, gargle salt water to soothe throat BRAT diet for diarrhea Clear liquids x 24 hours then advance as tolerated for nausea/vomiting Go to the ED if you develop a worsening in your condition- high fever not controlled by Tylenol or Motrin, dehydration, weakness, lethargy, shortness of breath, or chest pain. Follow up with your PCP in 3-5 days if symptoms persist. Patient Language: South African Prescriptions: No Action escitalopram oxalate [Lexapro] 5 mg tablet 5 mg PO DAILY Qty: 30 2RF ibuprofen 800 mg tablet 800 mg PO TID PRN (Reason: pain) 7 Days Qty: 21 0RF acetaminophen 500 mg tablet 1,000 mg PO TID PRN (Reason: tonya) 7 Days Qty: 42 0RF clonazepam 0.5 mg tablet 0.5 mg PO BID PRN (Reason: anxiety) Qty: 60 5RF Follow-up/Referrals: Marlon Monte MD [Primary Care Provider] - Time of Disposition: 20:24 Quality NIHSS Nursing Documentation ED NIHSS nursing documentation: reviewed/agree
[2024-09-30 19:48] VITALS: BP 122/74; PULSE 87; RESP 16; TEMP 36.4; O2SAT 100
[2024-09-30 20:13] LABS: EDCOVIDSCREEN Negative (Negative); EDINFLUASCREEN Negative (Negative); EDINFLUBSCREEN Negative (Negative)
[2024-09-30 20:14] LABS: EDSTREPNEGPOS1 Negative (Negative)
== END 2024-09-30 20:27 | disposition home or self-care (01) ==
PROVIDERS: Emergency Provider Nurse Practitioner Family; PCP Family Medicine Adolescent Medicine
DX: B34.9 Viral infection, unspecified (principal); J06.9 Acute upper respiratory infection, unspecified; J02.9 Acute pharyngitis, unspecified; Z20.822 Contact with and (suspected) exposure to COVID-19; F17.290 Nicotine dependence, other tobacco product, uncomplicated
CPT/HCPCS: 87081; 87426; 87804; 87880; 99213; G0463

== ENCOUNTER 2025-03-26 12:52 | Emergency (ER) | payer OTHER, SELFPAY ==
[2025-03-26 13:11] VITALS: BP 110/68; PULSE 71; RESP 18; TEMP 36.5; O2SAT 98
--- NOTE | 2025-03-26 13:23 | ED_ITS ---
HPI - URI/Sore Throat General Chief Complaint: Upper Respiratory Infection Stated Complaint: Headache/Sore Throat Time Seen by Provider: 03/26/25 13:23 Source: patient Mode of arrival: ambulatory Limitations: no limitations History of Present Illness HPI Narrative: 29-year-old female presents with complaint sore throat, right ear pain, headache starting yesterday. Denies cough, congestion. A afebrile. Denies nausea vomiting. All systems reviewed and negative except as noted above. Related Data Allergies Allergy/AdvReac Type Severity Reaction Status Date / Time sulfamethoxazole (From Allergy Rash Verified 03/26/25 12:55 Bactrim) trimethoprim (From Bactrim) Allergy Rash Verified 03/26/25 12:55 duloxetine (From Cymbalta) AdvReac Unknown Nausea Verified 03/26/25 12:55 sertraline AdvReac Unknown Nausea Verified 03/26/25 12:55 PMFSH Past Medical History Medical History Cellulitis of right axilla Engages in vaping Surgical History Surgical History H/O tubal ligation (01/21/22) Family History Family History Father Prostate carcinoma Diabetes mellitus Grandparent Diabetes mellitus Heart disease Mother Hypertension Migraine Social History Social History Smoking status: Current every day smoker Tobacco type: e-cigarettes/vaping Second hand tobacco smoke exposure: No Additional smoking assessment comments: CURRENTLY VAPES Alcohol intake: current Alcohol use details: 2-3/MONTH Substance use: never Substance use type: does not use Living arrangements: with family 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 There is no relevant family history pertinent to the presenting complaint. Exam Narrative: GENERAL: This is a well-nourished, well-developed patient, in no apparent distress. HEAD: normocephalic, atraumatic. EYES: PERRL. Sclera clear/white. Vision is grossly intact. EARS: External ears normal, auditory canals clear and without drainage, TMs normal without perforation. Hearing grossly intact. NOSE: External nose normal with no obvious nasal discharge, nares without redness, no rhinorrhea. THROAT: Mucous membranes moist, posterior pharynx clear. NECK: Neck supple, non-tender without lymphadenopathy, masses or thyromegaly. CARDIOVASCULAR: Regular rate and rhythm without murmurs, gallops, or rubs. RESPIRATORY: Clear to auscultation. Breath sounds equal bilaterally. No wheezes, rales, or rhonchi. SKIN: warm, Dry, intact with no suspicious lesions or rash, good texture and turgor. NEURO: awake, alert, and oriented to person, place and time. There were no obvious focal neurologic abnormalities. EXTREMITIES: No joint tenderness, effusion, or edema noted. Course Course Level of Care: Express Care Visit Vital Signs Vital signs: Vital Signs Temperature 36.5 C 03/26/25 13:11 Pulse Rate 71 03/26/25 13:11 Respiratory Rate 18 03/26/25 13:11 Blood Pressure 110/68 03/26/25 13:11 Pulse Oximetry 98 03/26/25 13:11 Oxygen Delivery Room Air 03/26/25 13:11 Temperature 36.5 C 03/26/25 13:11 Pulse Rate 71 03/26/25 13:11 Respiratory Rate 18 03/26/25 13:11 Blood Pressure 110/68 03/26/25 13:11 Pulse Oximetry 98 03/26/25 13:11 Oxygen Delivery Room Air 03/26/25 13:11 Reviewed MDM - URI/Sore Throat MDM Narrative Medical decision making narrative: negative COVID, influenza and strep. Patient is well-appearing, nontoxic. No erythema, swelling or exudates to throat. There is no signs of ear infection to right ear. Recommend [id number] medications to treat symptoms. Will wait for strep culture prior to treating with antibiotic. Differential Diagnosis Differential diagnosis: Likely upper respiratory infection, otitis media, sinusitis, viral infection, influenza and pharyngitis Lab Data Labs: Lab Results 03/26/25 Range/Units 13:25 POC Influenza A Ag Negative (Negative) POC Influenza B Ag Negative (Negative) POC SARS CoV-2 Ag Negative (Negative) POC Grp A Strep Screen Negative (Negative) Discharge Plan Discharge Clinical Impression: Acute viral pharyngitis Patient Disposition: Home Condition: Stable Instructions: Pharyngitis (ED) Additional Instructions: your COVID, influenza and strep test was negative today. A strep culture was ordered and results will take 24-48 hours. If your strep culture is positive we will call you at that time and prescribed an antibiotic. Take [id number] medications to treat your symptoms. Drink plenty of water and rest. See your doctor if symptoms are not improving. Patient Language: Kyrgyz Prescriptions: No Action escitalopram oxalate 20 mg tablet 20 mg PO DAILY Qty: 90 0RF hydroxyzine pamoate 25 mg capsule 25 mg PO QHS Qty: 30 0RF clonazepam 0.5 mg tablet 0.5 mg PO BID PRN (Reason: anxiety) Qty: 60 1RF Follow-up/Referrals: Julius Rudolph DO [Primary Care Provider, [facility]] Time of Disposition: 13:29
[2025-03-26 13:28] LABS: EDCOVIDSCREEN Negative (Negative); EDINFLUASCREEN Negative (Negative); EDINFLUBSCREEN Negative (Negative); EDSTREPNEGPOS1 Negative (Negative)
== END 2025-03-26 13:30 | disposition home or self-care (01) ==
PROVIDERS: Emergency Provider Nurse Practitioner Family; PCP Family Medicine
DX: J02.8 Acute pharyngitis due to other specified organisms (principal); Z20.822 Contact with and (suspected) exposure to COVID-19; F17.290 Nicotine dependence, other tobacco product, uncomplicated
CPT/HCPCS: 87081; 87426; 87804; 87880; 99213; G0463